=== PATIENT | female | born 1970 | race Hispanic/Latino ===

== ENCOUNTER 2019-12-17 15:09 | Observation (INO) | payer OTHER, SELFPAY ==
[2019-12-17] MEDS ORDERED: Acetaminophen 650 MG Suppository PR PRN (17:22)
[2019-12-17] MEDS ORDERED: Sodium Chloride 0.9% 1,000 ML IV SCH (17:30)
--- NOTE | 2019-12-17 18:37 | HP ---
TIME OF ASSESSMENT: At 1700. CHIEF COMPLAINT: Left-sided chest pain. HISTORY OF PRESENT ILLNESS: Ms. Goff is a 49-year-old woman, who reports a 7/10 left-sided chest pain while she was driving to work this morning. She states the pain was a 10/10 in severity, described as a pressure and again involving the left side of her chest with no radiation down her arm, to her neck, to her back or elsewhere. She states the pain remained constant for approximately 10 minutes. She managed to rack puller into a gas station. After the pain eased to about a 5/10 in severity, she called her daughter who advised there was a potential pain, could be muscular in nature, because the patient has had issues with musculoskeletal-type pain. The patient, however, states that this pain was different. Normally, she is sore all along her sternum and she feels pain when she extends her chest outward. However, the pain today was not reproducible on palpation nor with any type of movement. Patient also states that she was significantly diaphoretic, felt nauseated and vomited once. She started to feel better and decided to carry around driving to work and began to experience severe chest pain once again. She therefore sought medical attention and was initially seen at [facility]. Patient states she has never experienced pain like this before. Again, describes a pressure and sensation of something being on the left side of her chest with occasional episodes of sharp stabbing pains. She denies any associated shortness of breath. She did state when it first started, it seemed to take her breath away because of the severity of the pain, but denies any actual breathlessness. She is very active at work and her job consists of cleaning houses. States at times she has experienced palpitations at the end of the day when she is lying in bed and recalls having some sort of discomfort, but nothing similar to which she experienced today. Denies having any fevers, chills, or sweats. No cough or hemoptysis. No lower extremity swelling. All other review of systems are negative. Of note, patient states she had a stress test five years ago that was normal and done due to central chest pain. EMERGENCY DEPARTMENT COURSE: At [facility], the patient underwent an EKG that showed normal sinus rhythm with no ST changes or T-wave abnormalities. She had a chest x-ray done, which showed no evidence of intrathoracic abnormalities. Patient was given nitroglycerin 0.4 mg x3. Also, received 324 mg of aspirin and 30 mg of IV Toradol. Given a GI cocktail. The first troponin was indeterminate, however, second came back slightly elevated at 0.04 followed by a third troponin of 0.072. This prompted her to receive Lovenox prior to being transferred here for further workup and investigations. CK-MB was 1. She had a repeat EKG done on arrival here and showed normal sinus rhythm with a heart rate of 78. Again, ST segments were normal and there were no T-wave abnormalities. PAST MEDICAL HISTORY: None. PAST SURGICAL HISTORY: None. SOCIAL HISTORY: Patient denies any history of tobacco use, alcohol consumption, or illicit drug use. She lives with her family and is fully independent. FAMILY HISTORY: Denies any family history of heart disease or MIs. States her mother is and had complications due to pneumonia. ALLERGIES: NO KNOWN DRUG ALLERGIES. CURRENT MEDICATIONS: None. PHYSICAL EXAMINATION: GENERAL: Patient appears well developed, well nourished, is in no acute distress. VITAL SIGNS: Temperature 98.2, pulse 77, blood pressure 110/71, respirations 18, and O2 saturation 99% on room air. HEENT: Normocephalic and atraumatic. Pupils are equal, round, and reactive to light. Sclerae icterus. Oropharynx is clear. NECK: Supple. LUNGS: Clear to auscultation bilaterally without any wheezes, rales, or rhonchi. CARDIAC: Regular rate and rhythm without audible murmurs, rubs, or gallops. No reproducible chest pain on palpation of the anterior chest. ABDOMEN: Soft, nontender, and nondistended with active bowel sounds present. No guarding or rigidity. No renal angle tenderness. EXTREMITIES: No lower leg swelling or edema. NEUROLOGIC: Alert and oriented x3. SKIN: Warm and dry. INVESTIGATIONS: As mentioned above in HPI. IMPRESSION AND PLAN: Ms. Goff is a 49-year-old woman presenting with severe chest pain, who was initially seen in [facility] and has had monitoring of her troponins which are uptrending. Initial was negative, second was 0.040 and third was 0.072. She has been treated with full dose Lovenox. She is being admitted for further ACS workup. EKG normal x2. 1. Continue cardiac monitoring. 2. We will check lipid panel with morning labs, magnesium, and TSH. 3. Repeat troponin at 1900. 4. Continue Lovenox. 5. Day team to decide if Cardiology input indicated versus stress test if troponin begins to trend downward. 6. Gastrointestinal prophylaxis with famotidine. 7. Deep venous thrombosis prophylaxis with mechanical SCDs. As mentioned, patient has received Lovenox for suspected [id number] myocardial infarction prior to arriving to our emergency department here. 8. Echo ordered. 9. Code status, full. 10. Surrogate decision maker is her daughter, Eulalio Goff. Case was discussed with Dr. Patel, who agrees with plan of care as described above. Job ID: [id number]
[2019-12-17 20:01] VITALS: BMI 25.0
[2019-12-17] MEDS: Nitroglycerin 2% Ointment 1 INCH/1 GM Packet TOP SCH (21:01)
[2019-12-17] MEDS: Famotidine/PF 20 mg/2ml Vial SLOW IVP SCH (21:02)
[2019-12-17] MEDS ORDERED: Morphine 2 MG/ML VIAL SLOW IVP SCH (22:30)
[2019-12-17 22:42] LABS: Troponin I 0.058 ng/mL (< 0.028)
[2019-12-18 04:56] LABS: #Eosinphils 0.1 thou/uL (0.0-0.7); #Lymphocytes 2.2 thou/uL (1.20-3.40); #Monocytes 0.5 thou/uL (0.11-0.59); #Neutrophils 3.3 thou/uL (1.40-6.50); %Basophils 0.5 % (0.0-1.0); %Eosinophils 1.4 % (0.0-10.0); %Lymphocytes 35.9 % (21.0-51.0); %Monocytes 8.1 % (0.0-10.0); %Neutrophils 54.2 % (42.0-75.0); Hemoglobin 12.8 g/dL (12.0-16.0); Mean Corpuscular HGB CONC 34.3 g/dL (32.0-36.0); Mean Corpuscular Hemoglobin 32.4 pg (27.0-31.0); Mean Corpuscular Volume 94.4 fL (78.0-98.0); Mean Platelet Volume 8.3 fL (7.4-10.4); Platelet Count 227 thou/uL (130-400); RBC Distribution Width 11.1 % (11.5-14.5); Red Blood Cell (RBC) Count 3.96 mill/uL (4.20-5.40); White Blood Cell (WBC) Count 6.2 thou/uL (4.8-10.8)
[2019-12-18] MEDS: Nitroglycerin 2% Ointment 1 INCH/1 GM Packet TOP SCH ×3 (05:07→21:58)
[2019-12-18 05:12] LABS: Anion Gap 10 mmol/L (10-20); BUN (Urea Nitrogen) 13 mg/dL (7.0-18.7); Calc. Creatinine Clearance 105 mL/min (70-130); Calcium 8.4 mg/dL (7.8-10.44); Carbon Dioxide 24 mmol/L (22-29); Cardiac Risk 4.3 (Less than 4.5); Chloride 106 mmol/L (98-107); Cholesterol 143 mg/dl (< 200 Desired); Estimated GFR-MDRD 88; Glucose 97 mg/dL (70-105); HDL Cholesterol 33 mg/dL (>60 Neg Risk); LDL Cholesterol, Calculated 77 mg/dL; Potassium 3.7 mmol/L (3.5-5.1); Sodium 136 mmol/L (136-145); Triglycerides 163 mg/dL (Less than 150)
[2019-12-18] MEDS ORDERED: Morphine 2 MG/ML VIAL SLOW IVP SCH (06:00)
[2019-12-18] MEDS: Aspirin 81 mg Enteric Coated Tablet PO SCH (08:15)
[2019-12-18] MEDS: Famotidine/PF 20 mg/2ml Vial SLOW IVP SCH (08:15)
--- NOTE | 2019-12-18 09:01 | PDOC.HOSPP ---
- Subjective Encounter Date: 12/18/19 Encounter Time: 08:58 Subjective: Patient has continued with constant left sided chest pain that feels like "pressure" which she states remains at a 4 or 5 out of 10 in severity, still non -radiating. She has intermittent sharp pain over the left side of her chest that is a 6/10 in severity, occurring every 1-2 hours and lasting only 5 seconds at most. Morphine has been able to alleviate most of her pain. She has not felt the severe pain she had yesterday before coming in. Denies any shortness of breath. Has not had any further diaphoretic episodes or n/v. Patient describes the feeling in her heart as if it were a hose that was blocked and then opens up every one in a while. She has not had the Echo done, COVID testing is still pending. Of note, repeat EKG done has not shown any dynamic changes. Trops were trending upward but last one down came down to 0.58. - Objective Vital Signs & Weight: Vital Signs (12 hours) Temp Pulse Resp BP BP Pulse Ox 12/18/19 07:32 98.2 F 76 16 115/66 99 12/18/19 05:45 78 121/70 12/18/19 05:07 71 110/69 12/18/19 03:20 97.8 F 74 16 97/56 L 97 12/17/19 22:55 98.1 F 77 16 121/77 97 Weight Weight 150 lb 1.6 oz I&O: 12/17/19 12/18/19 12/19/19 06:59 06:59 06:59 Intake Total 1086 Output Total 600 Balance 486 Result Diagrams: 12/18/19 04:16 12/18/19 04:16 Hospitalist ROS - Review of Systems Constitutional: denies: fever, chills, sweats, weakness, malaise, other Respiratory: denies: cough, dry, shortness of breath, hemoptysis, SOB with excertion, pleuritic pain, sputum, wheezing, other Cardiovascular: reports: chest pain, palpitations Gastrointestinal: reports: vomiting (x 1 yesterday prior to arriving to ED. No further episodes.). denies: nausea, abdominal pain, diarrhea, constipation, melena, hematochezia, other Genitourinary: denies: dysuria, frequency, incontinence, hematuria, retention, other Musculoskeletal: reports: back pain (chronic lumbosacral pain) - Medication Medications: Active Medications Generic Name Dose Route Start Last Admin Trade Name Luna PRN Reason Stop Dose Admin Aspirin 81 mg 12/18/19 09:00 12/18/19 08:15 Ecotrin PO 81 mg DAILY MARA Administration Famotidine 20 mg 12/17/19 21:00 12/18/19 08:15 Pepcid SLOW IVP 20 mg Q12HR MARA Administration Sodium Chloride 1,000 mls @ 65 mls/hr 12/17/19 17:30 12/17/19 20:58 Normal Saline 0.9% IV 1,000 mls .[id number] MARA Administration Nitroglycerin 0.5 inch 12/17/19 22:00 12/18/19 05:07 Nitro-Bid 2% Ointment TOP 0.5 inch Q8HR MARA Administration - Exam General Appearance: NAD Eye: PERRL, anicteric sclera ENT: normocephalic atraumatic Neck: supple, symmetric, no lymphadenopathy Heart: RRR, no murmur, no gallops, no rubs, normal peripheral pulses Respiratory: CTAB, no wheezes, no rales, normal chest expansion, no tachypnea Gastrointestinal: soft, non-tender, non-distended, normal bowel sounds, no guarding, no rigidity Extremities: no edema Skin: normal turgor, no lesions, no rashes Neurological: cranial nerve grossly intact, normal sensation to touch Musculoskeletal: normal tone, normal strength, no muscle wasting Psychiatric: normal affect, normal behavior, A&O x 3 Hosp A/P (1) Chest pain Code(s): R07.9 - CHEST PAIN, UNSPECIFIED Status: Acute (2) Elevated troponin Code(s): R79.89 - OTHER SPECIFIED ABNORMAL FINDINGS OF BLOOD CHEMISTRY Status : Acute - Plan Trop down-trending yesterday evening however pain has persisted, no prior history of exertional CP but has had chest pain 5 years ago. She has not been pain free since her pain started. Patient concerned with structural problem in her heart and aware Echo has been ordered. No obvious s/s of PE, however given unusual description of pain, will obtain a d-dimer along with repeat troponins. Continue Lovenox. Continue Famotidine. Awaiting cardiology review/ recommendations. COVID testing pending as well.
[2019-12-18] MEDS ORDERED: Enoxaparin Sodium 80 MG/0.8 ML SYRINGE SC SCH ×2 (09:30→21:00)
[2019-12-18 10:30] LABS: CKMB 0.7 ng/mL (0-6.6)
[2019-12-18] MEDS ORDERED: Communication Order-Pharmacy FS SCH (11:15)
--- NOTE | 2019-12-18 11:54 | CON ---
DATE OF CONSULTATION: HISTORY OF PRESENT ILLNESS: Ms. Denver Diane is a 49-year-old female, mostly [place] speaking with translation provided by Yesika may nurse on [employer]. Yesterday morning at approximately 8:00 a.m., she had onset of lower sternal chest pressure radiating somewhat to the left side of her chest. She had nausea, mild vomiting, diaphoresis with this. The intense discomfort lasted approximately 10 minutes and then it became less intense. However, she states that she has not had any resolution of this chest discomfort since it started approximately 27 hours ago. The pain is also somewhat pleuritic in nature. She has had mildly elevated troponin I's. She also states she was hospitalized for 5 years ago with chest discomfort and underwent nuclear scan, which was normal. PAST MEDICAL HISTORY: She denies any history of hypertension, diabetes, or hypercholesterolemia. MEDICATIONS: None. ALLERGIES: NONE. SOCIAL HISTORY: She does not smoke or drink. FAMILY HISTORY: Negative for coronary artery disease. REVIEW OF SYSTEMS: A 10-point review of systems is unremarkable. PHYSICAL EXAMINATION: VITAL SIGNS: Blood pressure 115/66, pulse of 76. HEENT: PERRL. NECK: Supple. CHEST: Clear. CARDIAC: S1 and S2 normal without any S3, S4, or murmurs. Carotid upstrokes normal without bruits. ABDOMEN: Normal bowel sounds without tenderness. EXTREMITIES: Reveal no clubbing, cyanosis, or edema. NEUROLOGIC: Grossly intact. SKIN: Warm and dry. MUSCULOSKELETAL: Did reveal some palpable tenderness along the lower sternum. LABORATORY DATA: EKG reveals normal sinus rhythm and there is loss of R-wave from V2 to V3. CBC is unremarkable. Sodium 136, potassium 3.7, chloride 106, carbon dioxide 24, BUN 13, creatinine 0.71. Troponin I is 0.072. Cholesterol 143, triglycerides 163, HDL 33, LDL 77. TSH is normal. BNP is less than 10. Liver function tests were normal. IMPRESSION: Atypical chest discomfort, which has been constantly present for over 24 hours and is pleuritic in nature, but with mild increase in troponin I. This is her second hospitalization for chest pain. PLAN: The patient received a dose of 1 mg/kg of Lovenox 2 hours ago and therefore, will not undergo cardiac catheterization at this time. It was recommended through the chair spring assembler that she undergo cardiac catheterization. Risks were discussed including , myocardial infarction, dye reaction, vascular injury, CVA, transfusion, limb loss, renal loss, etc. Also risk of stent placement discussed including , myocardial infarction, emergent CABG, restenosis, stent thrombosis, etc. She has never had gastrointestinal bleeding and does not have any upcoming surgeries and overall it is recommended that drug-eluting stent be placed if needed. Her Lovenox will be discontinued at this time. Job ID: [id number] MTDD
[2019-12-18 13:34] LABS: CKMB 0.6 ng/mL (0-6.6)
[2019-12-18] MEDS: Acetaminophen 325 MG TAB PO PRN ×2 (15:51→23:15)
[2019-12-18] MEDS: Famotidine 20 MG TAB PO SCH (21:57)
[2019-12-19] MEDS: Famotidine 20 MG TAB PO SCH (05:24)
[2019-12-19] MEDS: Aspirin 81 mg Enteric Coated Tablet PO SCH (05:25)
[2019-12-19] MEDS: Acetaminophen 325 MG TAB PO PRN (05:26)
[2019-12-19] MEDS: Nitroglycerin 2% Ointment 1 INCH/1 GM Packet TOP SCH (05:59)
[2019-12-19] MEDS ORDERED: Sodium Chloride 0.9% 1,000 ML IV SCH ×2 (06:00→07:38)
[2019-12-19] MEDS ORDERED: Heparin 10,000 UNITS/ 10 ML VIAL ONE (06:27)
[2019-12-19] MEDS ORDERED: Lidocaine 1% (PF) 30 ML VIAL ONE (06:40)
[2019-12-19] MEDS ORDERED: Midazolam HCl 2 mg/2 ml Vial ONE (07:10)
[2019-12-19] MEDS ORDERED: Fentanyl 100 MCG/2 ML VIAL ONE (07:10)
[2019-12-19] MEDS ORDERED: Protamine Sulfate 50 MG/5 ML VIAL ONE (07:23)
[2019-12-19] MEDS ORDERED: Acetaminophen/Codeine 30-300mg Tablet PO PRN ×2 (07:37)
[2019-12-19] MEDS ORDERED: Sodium Chloride 0.9% 200 ML IV PRN (07:37)
[2019-12-19] MEDS ORDERED: Naproxen 500 MG TAB PO SCH (09:00)
[2019-12-19 09:12] LABS: #Basophils 0.1 thou/uL (0.0-0.2); #Eosinphils 0.1 thou/uL (0.0-0.7); #Lymphocytes 1.6 thou/uL (1.20-3.40); #Monocytes 0.4 thou/uL (0.11-0.59); #Neutrophils 4.1 thou/uL (1.40-6.50); %Basophils 0.9 % (0.0-1.0); %Lymphocytes 25.6 % (21.0-51.0); %Monocytes 6.2 % (0.0-10.0); %Neutrophils 66.3 % (42.0-75.0); Hemoglobin 13.2 g/dL (12.0-16.0); Mean Corpuscular HGB CONC 34.6 g/dL (32.0-36.0); Mean Corpuscular Hemoglobin 32.9 pg (27.0-31.0); Mean Corpuscular Volume 94.9 fL (78.0-98.0); Mean Platelet Volume 7.9 fL (7.4-10.4); Platelet Count 216 thou/uL (130-400); RBC Distribution Width 10.9 % (11.5-14.5); Red Blood Cell (RBC) Count 4.02 mill/uL (4.20-5.40); White Blood Cell (WBC) Count 6.2 thou/uL (4.8-10.8)
[2019-12-19 09:35] LABS: ALT (SGPT) 18 U/L (8-55); AST (SGOT) 15 U/L (5-34); Albumin 3.9 g/dL (3.5-5.0); Alkaline Phosphatase 66 U/L (40-110); Anion Gap 11 mmol/L (10-20); BUN (Urea Nitrogen) 10 mg/dL (7.0-18.7); Bilirubin, Total 0.5 mg/dL (0.2-1.2); Calc. Creatinine Clearance 108 mL/min (70-130); Calcium 8.4 mg/dL (7.8-10.44); Carbon Dioxide 22 mmol/L (22-29); Chloride 106 mmol/L (98-107); Estimated GFR-MDRD 90; Globulin 2.5 g/dL (2.4-3.5); Glucose 102 mg/dL (70-105); Lipase 22 U/L (8-78); Magnesium 1.9 mg/dL (1.6-2.6); Potassium 4.1 mmol/L (3.5-5.1); Protein, Total 6.4 g/dL (6.0-8.3); Sodium 135 mmol/L (136-145)
[2019-12-19] MEDS ORDERED: Iopamidol 370 76% 100 ML VIAL ONE (13:18)
[2019-12-19] MEDS ORDERED: Iopamidol 370 76% 50 ML VIAL FS ONE (13:18)
[2019-12-19 13:21] LABS: SARS-CoV-2 MS2 Positive; SARS-CoV-2 N Gene Negative; SARS-CoV-2 S Gene Negative; SARS-CoV-2 by NAA Not Detected (NotDetected); SARS-CoV-2 orf1ab Negative
[2019-12-19 15:48] VITALS: BP 124/76; TEMP 98.2
--- NOTE | 2019-12-19 19:21 | DIS ---
DATE OF ADMISSION: 12/17/2019 DATE OF DISCHARGE: 12/19/2019 CONSULTING PHYSICIAN: Dr. Black, Cardiology. DISCHARGE DIAGNOSES: 1. Chest pain, noncardiac. 2. Mild mitral regurgitation, aortic valve sclerosis, moderate aortic regurgitation and [id number] tricuspid regurgitation, on echo done on 12/18/2019 with EF of 55% to 60%. 3. Mild coronary artery disease, status post cath done 12/19/2019. 4. Hyperlipidemia, newly diagnosed. DISCHARGE MEDICATIONS: 1. Atorvastatin 10 mg p.o. at bedtime, quantity 30. 2. Naproxen 500 mg p.o. b.i.d., quantity 14. 3. Protonix 40 mg p.o. daily, quantity 30. HOSPITAL COURSE: Ms. Goff is a pleasant 49-year-old woman who presented to the emergency department on 12/17/2019, with complaints of acute severe chest pain that came on while she was driving. The patient had associated diaphoresis and an episode of vomiting, states it was 7/10 on the left side of her chest described as a severe pressure. Pain has eased since admission but has remained constant at a 4/10 in severity. Troponins were indeterminate, 0.058, 0.038, and 0.032. CK-MB was normal. She had a D-dimer checked which was negative. Chest x-ray done showed no acute process. She received nitroglycerin in the emergency department with no relief and received morphine without any significant relief. Blood pressures remained normal throughout her stay. The patient also given Toradol and a GI cocktail. She did receive Lovenox in the ED at [facility] prior to being transferred here for further investigations and management. The patient had no EKG changes. It was repeated once she arrived to the floor and again remained without any dynamic changes. Despite indeterminate troponins, we opted to continue Lovenox as the patient continued with persistent pain. Had never experienced any pain like this in the past and pain was nonreproducible on exam without any history of trauma or injuries. Consultation was placed to Cardiology and she was seen by Dr. Black. She was taken off Lovenox with plans to take her for a cardiac cath given the persistent pain. She had this done on 12/19/2019 and was found to have mild CAD with stenosis of 40% involving the LAD, 50% stenosis involving the left circumflex artery. Case discussed with Dr. Black who advised starting her on low-dose statin and otherwise cleared her for discharge from a cardiac standpoint. He felt the pain was likely musculoskeletal in nature. He recommended naproxen 500 mg b.i.d. We have advised Protonix 40 mg p.o. daily. The patient with mild discomfort that persisted at time of discharge. We did check bilateral DPs which were normal. Per discussion with Dr. Patel it was felt no further investigations were indicated. Her sats remained normal throughout her stay. She was not tachypneic or tachycardic. Continued to describe pressure but otherwise without complaints. Tolerating p.o. intake. The patient was seen and examined on day of discharge, seen and examined by Dr. Patel as well. FOLLOWUP: The patient advised to follow up with her primary care physician Dr. Burton within the next week. ACTIVITY: Advised to avoid any strenuous activity for four days given recent catheterization and after that, okay to slowly increase activity level. The patient plans to stay home from work for a week. DIET: Heart healthy. DISPOSITION: The patient medically cleared for discharge home. Given information sheets on noncardiac chest pain and given instructions in [place] regarding followup and activity as well as diet and her medications. The patient's case discussed with Dr. Patel who agrees with plan of care as described above. Job ID: [id number]
[2019-12-19] MEDS ORDERED: Atorvastatin Calcium 10 MG TAB PO SCH (21:00)
== END 2019-12-19 18:26 | disposition home or self-care (01) ==
LOC: ERS 15:09 → 2SW 16:39 → OBSVTOIN 16:39 → INTOOBSV 16:39
PROVIDERS: ADMIT Student in an Organized Health Care Education/Training Program; ATTEND Student in an Organized Health Care Education/Training Program
PROC: 4A023N7 Measurement of Cardiac Sampling and Pressure, Left Heart, Percutaneous Approach (ICD-10-PCS; principal; 2019-12-19)
PROC: B2111ZZ Fluoroscopy of Multiple Coronary Arteries using Low Osmolar Contrast (ICD-10-PCS; 2019-12-19)
DX: I25.10 Atherosclerotic heart disease of native coronary artery without angina pectoris (principal); I08.3 Combined rheumatic disorders of mitral, aortic and tricuspid valves; R07.89 Other chest pain; E78.5 Hyperlipidemia, unspecified; Z20.828 Contact with and (suspected) exposure to other viral communicable diseases
CPT/HCPCS: 36415; 80048; 80053; 80061; 82553; 83690; 83735; 83880; 84443; 84484; 85025; 85379; 85652; 86140; 87635; 93005; 93010; 93306; 93458; 94760; 96361; 96372; 96374; 96375; 96376; 99152; G0378; J1644; J1650; J2001; J2250; J2270; J2720; J3010; Q9967; S0028; U0003